=== PATIENT | male | born 1955 | race Caucasian/White ===

== ENCOUNTER 2019-01-14 06:50 | Day surgery (SDC) | payer OTHER ==
[2019-01-10 13:34] VITALS: BMI 31.4
[2019-01-14] MEDS ORDERED: EPINEPHrine 1:1,000 1 MG/1 ML - 30ML VIAL (INJECTION) ONE (09:09)
[2019-01-14] MEDS ORDERED: BUPIVACAINE HCL/PF 2.5 MG/ML - 30 ML VIAL IJ ONE (09:09)
[2019-01-14] MEDS ORDERED: MIDAZOLAM HCL 2 MG/2 ML SINGLE DOSE VIAL ONE (09:23)
[2019-01-14] MEDS ORDERED: DEXAMETHASONE SOD PHOSPHATE 4 MG/1 ML VIAL ONE (09:29)
[2019-01-14] MEDS ORDERED: PROPOFOL 20 ML ONE ×2 (09:29)
[2019-01-14] MEDS ORDERED: ONDANSETRON 4 MG/2 ML VIAL ONE (09:29)
[2019-01-14] MEDS ORDERED: LIDOCAINE HCL/PF 2% SDV 5ML VIAL ONE (09:29)
[2019-01-14] MEDS ORDERED: KETOROLAC TROMETHAMINE 30 MG/1 ML VIAL ONE (09:29)
[2019-01-14] MEDS ORDERED: ONDANSETRON 4 MG/2 ML VIAL IVPUSH PRN (10:28)
[2019-01-14] MEDS ORDERED: PROMETHAZINE HCL 25 MG/1 ML VIAL IVPUSH PRN (10:28)
[2019-01-14] MEDS ORDERED: oxyCODONE HCL 5 MG TABLET PO PRN (10:28)
--- NOTE | 2019-01-14 12:02 | OP ---
DATE OF OPERATION: 01/14/2019 Done at [facility] SURGEON: Thony Bentley MD [employer]OPPER [employer]KER HELPER: NASIR Barton PREOPERATIVE DIAGNOSES: 1. Right knee medial and lateral meniscal tear. 2. Right knee cartilage injury. 3. Right knee synovitis. POSTOPERATIVE DIAGNOSES: 1. Right knee medial and lateral meniscal tear. 2. Right knee cartilage injury. 3. Right knee synovitis. PROCEDURE: 1. Right knee arthroscopy, partial meniscectomy medial and lateral meniscus, CPT code 52253. 2. Right knee arthroscopy with chondroplasty and abrasion-plasty, CPT code 64577. 3. Right knee arthroscopy with synovectomy, CPT code 62064. FINDINGS: 1. Medial meniscus body, posterior horn tear inner 1/3. 2. Lateral meniscus anterior horn tear. 3. Synovitis patellofemoral medial and lateral notch area. 4. Anterior grade 2 cartilage injury medial femoral condyle. 5. ACL and PCL intact. 6. Diffuse grade 1-2 cartilage injury lateral joint line with calcification lateral portion of meniscus. 7. Central grade 2-3 cartilage injury patella patellofemoral trochlea 2 cm x 3 cm, grade 4 changes anterolateral patellofemoral trochlea with 2 cm x 1 cm lateral facet grade 4 changes. PROCEDURE: Informed consent was obtained. The patient came to the operating room, where the lower extremity was prepped and draped in a sterile fashion. A tourniquet was placed on the upper thigh, but not inflated. Using standard arthroscopic technique, a lateral incision and portal was made to allow for introduction of the camera into the suprapatellar bursa. This was then taken to the medial joint line, where under direct visualization, a medial incision and portal was made. Excessive synovium noted in the medial, lateral and patellofemoral and notch area was removed by an upbiter, shaver and Bovie cautery. This was found to bring in inflammatory tissue into the joint surface, a source of pain and dysfunction. Probing of the medial and lateral meniscus found tears, as described in the findings. These were removed with the upbiter and shaver and taken back to a stable rim. Grade 2 to 3 degenerative changes were treated with a chondroplasty, removing all flaking surfaces with low-setting Bovie along the periphery to prevent further flaking. Grade 4 changes, as noted, were treated with an abrasoplasty, creating a bleeding surface at the bone/cartilage interface. Aggressive debridement with shaver/lisandro created bleeding surface. Micro fracture also done when indicated in findings. All areas of the knee were once again reexamined. The knee was then drained and a single suture was placed in all portals. A sterile dressing was placed and the patient was transferred to the recovery room without complication. The PA listed above was present and assisted at surgery. Their presence was absolutely medically necessary for the completion of the procedure. They helped hold the arthroscopy, pass instruments (and implants when indicated) and the procedure could not have been completed without their assistance. THONY BENTLEY M.D. [id number]
[2019-01-14 12:51] VITALS: BP 128/71; PULSE 47; TEMP 98.1
--- NOTE | 2019-01-19 15:00 | PATH ---
Surgical Pathology Report Patient Name: KANDI LEWIS Med. Rec. #: [id number] /Age/Gender: 1955 (Age: 63) / M Account: [id number] Location: [facility] Taken: 01/14/2019 Received: 01/14/2019 Reported: 01/19/2019 Physicians: Thony Martinez M.D. Specimen(s) Received RIGHT KNEE SHAVINGS Clinical History Right knee internal derangement Final Diagnosis KNEE, RIGHT, ARTHROSCOPIC SHAVINGS: CARTILAGE AND FIBROSYNOVIAL TISSUE SHOWING NODULAR AGGREGATES OF CYRSTALLINE CALCIFIC MATERIAL, CONSISTENT WITH CHONDROCALCINOSIS (PSEUDOGOUT). Electronically Signed Inga Spencer M.D. Gross Description Received in formalin labeled "right knee shavings," are multiple fragments of white soft tissue measuring 2.5 x 2.5 x 0.2 cm in aggregate. [employer] Administrator portions are submitted in one cassette. VLADIMIR/01/17/2019 ayanna/01/17/2019
== END 2019-01-14 12:15 | disposition home or self-care (01) ==
LOC: FASU 06:50
PROVIDERS: ATTEND Orthopaedic Surgery
PROC: 0SBC4ZZ Excision of Right Knee Joint, Percutaneous Endoscopic Approach (ICD-10-PCS; 2019-01-14)
PROC: 0SBC4ZZ Excision of Right Knee Joint, Percutaneous Endoscopic Approach (ICD-10-PCS; 2019-01-14)
PROC: 0SBC4ZZ Excision of Right Knee Joint, Percutaneous Endoscopic Approach (ICD-10-PCS; principal; 2019-01-14 09:54)
DX: S83.241A Other tear of medial meniscus, current injury, right knee, initial encounter (principal); S83.281A Other tear of lateral meniscus, current injury, right knee, initial encounter; S83.8X1A Sprain of other specified parts of right knee, initial encounter; M65.861 Other synovitis and tenosynovitis, right lower leg; X58.XXXA Exposure to other specified factors, initial encounter; Y93.9 Activity, unspecified; Y92.9 Unspecified place or not applicable
CPT/HCPCS: 88304-TC; 94760